=== PATIENT | male | born 1940 | race Caucasian/White ===

== ENCOUNTER → 2021-01-18 | Outpatient (CLI) | payer MEDICARE ==
--- NOTE | 2021-01-18 13:02 | FL ---
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 Total fluoroscopy time: 1 minute 33 seconds. Total images: 10. Findings: There is asymmetric elevation of the right hemidiaphragm. Sluggish and intermittently delayed movemen t of the right hemidiaphragm during quiet breathing and deep inspiration and expiration. However, dur ing sniffing maneuver, there is either absence of movement of the right hemidiaphragm or paradoxical movement. 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
== END | disposition home or self-care (01) ==
LOC: RADUSWWP 08:29
PROVIDERS: ATTEND Family Medicine
DX: J98.6 Disorders of diaphragm (principal)
CPT/HCPCS: 76000